=== PATIENT | male | born 1990 | race Hispanic/Latino ===

== ENCOUNTER 2022-02-26 13:02 | Emergency (ER) | payer OTHER ==
[~2022-02-26] VITALS: Ht 167.6 cm; Wt 90.7 kg
[2022-02-26] MEDS ORDERED: ACETAMINOPHEN 500 MG TABLET PO ONE (15:30)
[2022-02-26 16:16] VITALS: BP 135/68
== END 2022-02-26 16:23 | disposition home or self-care (01) ==
LOC: EDH 13:02
DX: S09.93XA Unspecified injury of face, initial encounter (principal); Y04.8XXA Assault by other bodily force, initial encounter; Y93.89 Activity, other specified; Y92.511 Restaurant or cafe as the place of occurrence of the external cause; Y99.9 Unspecified external cause status
CPT/HCPCS: 70486